=== PATIENT | female | born 1960 | race African-American/Black ===

== ENCOUNTER 2022-11-26 12:20 | Emergency (ER) | payer MEDICAID, MEDICARE ==
[~2022-11-26] VITALS: Ht 180.3 cm; Wt 137.0 kg
[2022-11-26 13:02] LABS: BASOPHILS % 0.8 % (0.0-2.0); EOSINOPHILS % 2.5 % (0.0-5.0); HEMATOCRIT. 38.9 % (36.0-48.0); LYMPHOCYTES % 38.3 % (20.0-50.0); MEAN CORPUSCULAR HEMOGLOBIN 32.3 pg (28.0-32.0); MEAN CORPUSCULAR VOLUME 96.6 fL (81.0-99.0); MONOCYTES % 7.9 % (2.0-8.0); NEUTROPHILS % 50.5 % (40.0-76.0); PLATELET 180 x1000/uL (130-400); RED BLOOD CELL COUNT 4.03 mill/uL (4.2-5.4); RED CELL DISTRIBUTION WIDTH 14.5 % (11.6-14.6)
[2022-11-26 13:11] LABS: INR 1.1; PARTIAL THROMBOPLASTIN TIME 28.4 sec (23.4-31.0); PROTHROMBIN TIME 11.4 sec (9.6-11.0)
[2022-11-26 13:14] LABS: CHLORIDE 110 mEq/L (98-107)
[2022-11-26 16:02] LABS: CLARITY URINE CLEAR (CLEAR); COLOR URINE YELLOW (YELLOW); KETONES URINE NEGATIVE (NEGATIVE); LEUKOCYTE ESTERASE URINE NEGATIVE (NEGATIVE); NITRITE URINE NEGATIVE (NEGATIVE); OCCULT BLOOD URINE NEGATIVE (NEGATIVE); PROTEIN URINE NEGATIVE (NEGATIVE); SPECIFIC GRAVITY URINE 1.016 (1.005-1.030)
[2022-11-26] MEDS ORDERED: ACETAMINOPHEN 325MG TABLET PO NR (16:15)
[2022-11-26] MEDS ORDERED: KETOROLAC 30MG/ML VIAL IM NR (16:15)
[2022-11-26] MEDS ORDERED: AMLODIPINE 5MG TABLET PO NR (16:15)
[2022-11-26] MEDS ORDERED: HYDRALAZINE HCL 10MG TABLET PO ONE (17:15)
[2022-11-26 17:28] VITALS: BP 183/95
[2022-11-26] MEDS ORDERED: TOPUD MT (17:35)
[2022-11-26] MEDS ORDERED: ALBU18HF2 IH (17:35)
[2022-11-26] MEDS ORDERED: METH-653 MT (17:35)
[2022-11-26] MEDS ORDERED: HYDR28OI2 TP (17:35)
== END 2022-11-26 18:24 | disposition home or self-care (01) ==
LOC: ER 12:45
DX: M25.512 Pain in left shoulder (principal); M54.9 Dorsalgia, unspecified; I10 Essential (primary) hypertension; J44.1 Chronic obstructive pulmonary disease with (acute) exacerbation; Z98.890 Other specified postprocedural states; Z86.39 Personal history of other endocrine, nutritional and metabolic disease
CPT/HCPCS: 36415; 71045; 80053; 81003; 84484; 85025; 85610; 85730; 93005; 96372; 99284; J1885